=== PATIENT | male | born 1945 | race Caucasian/White ===

== ENCOUNTER 2020-12-21 09:36 | Emergency (ER) | payer MEDICARE, BC ==
[2020-12-21 10:05] LABS: HEMOGLOBIN 7.2 gm/dl (14.0-17.5); RED BLOOD COUNT 2.43 M/UL (4.20-5.50); WHITE BLOOD COUNT 7.9 K/UL (4.5-11.0)
[2020-12-21 10:34] LABS: BUN/CREATININE RATIO 21 (0-10)
== END 2020-12-21 12:40 | disposition home or self-care (01) ==
LOC: ER1 09:36
PROVIDERS: Physician Assistant
DX: I48.0 Paroxysmal atrial fibrillation (principal); E11.22 Type 2 diabetes mellitus with diabetic chronic kidney disease; N18.9 Chronic kidney disease, unspecified; D63.1 Anemia in chronic kidney disease; Z87.442 Personal history of urinary calculi; Z85.46 Personal history of malignant neoplasm of prostate; Z79.899 Other long term (current) drug therapy
CPT/HCPCS: 36415; 71045; 80053; 82550; 82553; 83735; 83874; 83880; 84484; 85025; 93005; 96374; 99284; J2405; Q9967

== ENCOUNTER 2020-12-23 23:03 | Observation (INO) | payer MEDICARE, BC ==
[~2020-12-23] VITALS: Ht 180.3 cm; Wt 100.2 kg
[2020-12-23 23:31] LABS: WHITE BLOOD COUNT 7.6 K/UL (4.5-11.0)
[2020-12-23 23:55] LABS: BUN/CREATININE RATIO 14 (0-10)
[2020-12-23 23:56] LABS: HEMOGLOBIN 6.4 gm/dl (14.0-17.5); RED BLOOD COUNT 2.11 M/UL (4.20-5.50)
[2020-12-24 12:15] LABS: HEMOGLOBIN 8.3 gm/dl (14.0-17.5); WHITE BLOOD COUNT 7.6 K/UL (4.5-11.0)
[2020-12-24 12:19] LABS: RED BLOOD COUNT 2.8 M/UL (4.20-5.50)
[2020-12-24] MEDS ORDERED: VALSARTAN160 MG PO (14:53)
[2020-12-24] MEDS ORDERED: TOPROL XL 25 MG25 MG PO (14:53)
[2020-12-24] MEDS ORDERED: FENOFIBRATE160 MG PO (14:54)
[2020-12-24] MEDS ORDERED: SIMVASTATIN20 MG PO (14:55)
[2020-12-24] MEDS ORDERED: TIZANIDINE HCL2 MG PO (14:55)
[2020-12-24] MEDS ORDERED: TRAZODONE HCL50 MG PO (15:00)
[2020-12-24] MEDS ORDERED: FERROUS SULFAT325 M2 PO (15:01)
[2020-12-24] MEDS ORDERED: GLUCOPHAGE XR500 M1 PO (15:01)
[2020-12-24] MEDS ORDERED: OMEPRAZOLE40 MG PO (15:02)
[2020-12-24] MEDS ORDERED: CYMBALTA60 MG PO (15:02)
[2020-12-24] MEDS ORDERED: AZELASTINE137 MCG/0. (15:03)
[2020-12-24] MEDS ORDERED: FLOVENT DISKUS50 MCG INH (15:05)
[2020-12-24] MEDS ORDERED: SINGULAIR10 MG PO (15:07)
[2020-12-24] MEDS ORDERED: PROAIR DIGIHAL90 MCG INH (15:07)
[2020-12-24] MEDS ORDERED: XARELTO20 MG PO (15:08)
[2020-12-24] MEDS ORDERED: ZYRTEC10 MG PO (15:08)
[2020-12-24] MEDS ORDERED: ALPRAZOLAM0.5 MG PO (15:09)
[2020-12-24] MEDS ORDERED: XANAX0.5 MG PO (15:10)
[2020-12-24] MEDS ORDERED: DIOVAN160 MG PO (15:11)
[2020-12-24] MEDS ORDERED: FLOMAX 0.4 MG0.4 MG PO (15:11)
[2020-12-24] MEDS ORDERED: HYDROCODON-ACE1 EAC2 PO (15:12)
[2020-12-25 07:23] LABS: HEMOGLOBIN 7.8 gm/dl (14.0-17.5); RED BLOOD COUNT 2.79 M/UL (4.20-5.50); WHITE BLOOD COUNT 7.4 K/UL (4.5-11.0)
[2020-12-25] MEDS ORDERED: FOLIC ACID0.4 MG PO (11:48)
[2020-12-25] MEDS ORDERED: B-121000 MCG PO (11:48)
[2020-12-25] MEDS ORDERED: TIZANIDINE HCL2 MG PO (11:48)
[2020-12-25] MEDS ORDERED: IRON325 M1 PO (13:15)
== END 2020-12-25 15:04 | disposition home or self-care (01) ==
LOC: ER1 23:03 → CDU 12-24 02:33 → MED SURG 4 12-24 17:18
PROVIDERS: Family Medicine; Internal Medicine; ADMIT Internal Medicine
DX: D62 Acute posthemorrhagic anemia (principal); D50.9 Iron deficiency anemia, unspecified; R47.81 Slurred speech; I48.0 Paroxysmal atrial fibrillation; I10 Essential (primary) hypertension; E53.8 Deficiency of other specified B group vitamins; D35.2 Benign neoplasm of pituitary gland; G89.29 Other chronic pain; M54.5 Low back pain; F41.9 Anxiety disorder, unspecified; K21.9 Gastro-esophageal reflux disease without esophagitis; E11.9 Type 2 diabetes mellitus without complications; F32.9 Major depressive disorder, single episode, unspecified; E78.5 Hyperlipidemia, unspecified; E78.1 Pure hyperglyceridemia; G47.33 Obstructive sleep apnea (adult) (pediatric); N40.0 Benign prostatic hyperplasia without lower urinary tract symptoms; H91.90 Unspecified hearing loss, unspecified ear; E66.9 Obesity, unspecified; Z68.30 Body mass index [BMI] 30.0-30.9, adult; Z20.822 Contact with and (suspected) exposure to COVID-19; Z79.01 Long term (current) use of anticoagulants; Z79.899 Other long term (current) drug therapy; Z85.46 Personal history of malignant neoplasm of prostate; Z79.84 Long term (current) use of oral hypoglycemic drugs; Z79.51 Long term (current) use of inhaled steroids
CPT/HCPCS: ECHO; 36430; 70450; 70551; 71045; 80048; 80053; 82272; 82550; 82553; 82607; 82728; 82962; 83036; 83540; 83550; 83874; 84146; 84439; 84443; 84484; 85025; 85610; 86850; 86900; 86901; 86920; 93005; 93306; 96372; 99285; G0378; J3420; J7050; P9016; U0002